=== PATIENT | female | born 1960 | race Caucasian/White ===

== ENCOUNTER → 2016-10-24 | Outpatient (CLI) | payer BC | END | disposition home or self-care (01) | LOC: PTH.S 09:05 | DX: T86.819 Unspecified complication of lung transplant (principal); E83.42 Hypomagnesemia; Z79.899 Other long term (current) drug therapy ==

== ENCOUNTER → 2016-11-09 | Outpatient (CLI) | payer BC | END | disposition home or self-care (01) | LOC: PTH.S 09:12 | DX: T86.819 Unspecified complication of lung transplant (principal); E83.42 Hypomagnesemia ==

== ENCOUNTER → 2016-11-29 | Outpatient (CLI) | payer BC | END | disposition home or self-care (01) | LOC: PTH.S 08:30 → RESC 12-05 09:00 → PTH.S 12-12 08:30 | DX: Z48.24 Encounter for aftercare following lung transplant (principal); Z94.2 Lung transplant status ==

== ENCOUNTER → 2017-02-15 | Outpatient (CLI) | payer BC | END | disposition home or self-care (01) | LOC: RESC 02-07 10:49 → PTH.S 08:30 → RESC 08:35 | DX: T86.819 Unspecified complication of lung transplant (principal); E88.42 MERRF syndrome; Z79.899 Other long term (current) drug therapy ==